=== PATIENT | female | born 1930 | race Caucasian/White ===

== ENCOUNTER → 2016-10-27 | Outpatient (CLI) | payer MEDICARE, MEDICAID ==
[~2016-10-27] MED LIST: DENOSUMAB 60 MG/ML 1 ML SYRINGE SQ ONE
[2016-10-27 11:15] VITALS: BP 126/76; PULSE 78; RESP 16; TEMP 97.9
== END ==
LOC: PROCWHC3 10:38
PROVIDERS: ATTEND Family Medicine
DX: M81.0 Age-related osteoporosis without current pathological fracture (principal)
CPT/HCPCS: 96372; J0897

== ENCOUNTER → 2017-04-19 | Outpatient (CLI) | payer MEDICARE, MEDICAID ==
--- NOTE | 2017-04-20 14:51 | MM ---
Reason for exam: screening (asymptomatic). Last mammogram was performed 1 year ago. History: Patient is postmenopausal, has history of breast cancer at age 70, has history of high-risk lesion on a previous biopsy at age 70, and had first child at age 31. No known family history of cancer. High risk mastectomy of the right breast, April 25, 2001. Malignant excisional biopsy of the right breast, April 11, 2001. Lumpectomy of the left breast, 1959. Cyst aspiration of the right breast. Took tamoxifen for 5 years beginning at age 70. Physical Findings: A clinical breast exam by your physician is recommended on an annual basis and results should be correlated with mammographic findings. MG 3D Scr Renee Unilateral W/Cad CC, MLO, and XCCL view(s) were taken of the left breast. Prior study comparison: April 18, 2016, left breast MG 3d diag mammo w/cad LT. March 30, 2015, left breast MG 3d diag mammo w/cad LT. The breast tissue is heterogeneously dense. This may lower the sensitivity of mammography. Finding #1: Stable architectural distortion in the anterior, subareolar position of the left breast consistent with known lumpectomy. Finding #2: There are typically benign round calcifications in the left breast. There is no discrete abnormality. ASSESSMENT: Benign, BI-RAD 2 RECOMMENDATION: Follow-up diagnostic mammogram of the left breast in 1 year.
== END | disposition home or self-care (01) ==
LOC: RADMAMWWP 12:56
PROVIDERS: ATTEND Family Medicine
DX: Z12.31 Encounter for screening mammogram for malignant neoplasm of breast (principal)
CPT/HCPCS: 77063; G0202

== ENCOUNTER → 2017-05-01 | Outpatient (CLI) | payer MEDICARE, MEDICAID ==
[2017-05-01 14:07] VITALS: BP 116/66; PULSE 79; RESP 16; TEMP 97.8
== END | disposition home or self-care (01) ==
LOC: PROCWHC3 13:51
PROVIDERS: ATTEND Family Medicine
DX: M81.0 Age-related osteoporosis without current pathological fracture (principal)
CPT/HCPCS: 96372; J0897

== ENCOUNTER 2017-06-29 10:53 | Emergency (ER) | payer MEDICARE, MEDICAID ==
[2017-06-29] MEDS ORDERED: SODIUM CHLORIDE 0.9% 1,000 ML IV STA (10:59)
[2017-06-29] MEDS ORDERED: DILTIAZEM 5 MG/ML 5 ML VIAL IVP STA (10:59)
--- NOTE | 2017-06-29 11:09 | ED ---
General Adult HPI - General Chief complaint: Dizziness Stated complaint: Dizzy/ A fib Time Seen by Provider: 06/29/17 10:59 Source: patient, RN notes reviewed, old records reviewed Mode of arrival: wheelchair Limitations: no limitations - History of Present Illness Initial comments: This is an 86-year-old female to the ER for evaluation. She presents today for evaluation regarding feeling dizzy, dizzy weak lightheaded. Patient states she has history of atrial fibrillation, she has had some palpitations. No fevers. No chest - Related Data Home Medications Medication Instructions Recorded Confirmed Verapamil HCl 120 mg PO DAILY 08/25/15 06/29/17 Calcium Carbonate [Tums] 500 mg PO BID 06/29/17 06/29/17 Sulfamethox-Tmp 800-160Mg [Bactrim 1 tab PO BID 06/29/17 06/29/17 DS 800-160 mg] Previous Rx's Medication Instructions Recorded Warfarin Sodium [Coumadin] 5 mg PO DAILY #10 tab 08/29/15 Allergies Allergy/AdvReac Type Severity Reaction Status Date / Time morphine AdvReac Nausea & Verified 06/29/17 11:25 Vomiting Review of Systems ROS Statement: Those systems with pertinent positive or pertinent negative responses have been documented in the HPI. ROS Other: All systems not noted in ROS Statement are negative. Past Medical History Past Medical History: Atrial Fibrillation, Cancer, Deep Vein Thrombosis (DVT), Eye Disorder, Osteoarthritis (OA) Additional Past Medical History / Comment(s): BREAST CANCER.CATARACTS, SINUS PROBLEMS,DVT POST SX. 1998, INCONT OF URINE, OSTEOPOROSIS, SHINGLES RT HIP/BACK IN 2014, CONSTIPATION D/T PAIN MEDS, HAS HAD A FAST HEART RATE IN PAST,VERY TINY BM TODAYHAD A LARGE ONE DAY BEFORE.PER FAMILY PT TO ONLY HAVE 50% WEIGHT BEAR ON RT AND NOT TO LAY ON HER SIDES-JUST HAD HIP SX 07-28-15. History of Any Multi-Drug Resistant Organisms: None Reported Past Surgical History: Breast Surgery, Cholecystectomy, Hysterectomy, Joint Replacement, Orthopedic Surgery, Tonsillectomy Additional Past Surgical History / Comment(s): BILATERAL KNEE REPLACEMENT. CARPAL TUNNEL. RIGHT MASTECTOMY (NO CHEMO OR RADIATION). LT BREAST BX NEG ORIF RIGHT ELBOW.07-28-15 RT HIP REPLACEMENT, LT BREAST BX, CYSTOCELE/RECTOCELE Past Anesthesia/Blood Transfusion Reactions: No Reported Reaction Past Psychological History: No Psychological Hx Reported Smoking Status: Never smoker Past Alcohol Use History: None Reported Past Drug Use History: None Reported - Past Family History Daughter(s) Family Medical History: Asthma Additional Family Medical History / Comment(s): PT WAS ADOPTED DOES'NT KNOW ANY MOM AND DAD HX. General Exam Limitations: no limitations General appearance: alert, in no apparent distress Head exam: Present: atraumatic, normocephalic, normal inspection Eye exam: Present: normal appearance, PERRL, EOMI. Absent: scleral icterus, conjunctival injection, periorbital swelling ENT exam: Present: normal exam, mucous membranes moist Neck exam: Present: normal inspection. Absent: tenderness, meningismus, lymphadenopathy Respiratory exam: Present: normal lung sounds bilaterally. Absent: respiratory distress, wheezes, rales, rhonchi, stridor Cardiovascular Exam: Present: regular rate, normal rhythm, normal heart sounds. Absent: systolic murmur, diastolic murmur, rubs, gallop, clicks GI/Abdominal exam: Present: soft, normal bowel sounds. Absent: distended, tenderness, guarding, rebound, rigid Extremities exam: Present: normal inspection, full ROM, normal capillary refill. Absent: tenderness, pedal edema, joint swelling, calf tenderness Back exam: Present: normal inspection Neurological exam: Present: alert, oriented X3, CN II-XII intact Psychiatric exam: Present: normal affect, normal mood Skin exam: Present: warm, dry, intact, normal color. Absent: rash Course Vital Signs 06/29/17 06/29/17 10:56 11:15 Temperature 99.1 F 99.1 F Pulse Rate 105 H 78 Respiratory 20 15 Rate Blood Pressure 111/70 118/61 O2 Sat by Pulse 96 96 Oximetry - Reevaluation(s) Reevaluation #1: 06/29/17 13:27 Patient currently states she has no complaints is feeling better, denies chest pain shortness of breath abdominal pain or headache EKG Findings - EKG Comments: EKG Findings:: EKG shows normal sinus rhythm rate of 86, [place] 170, QRS 1:30, QTc 464 Medical Decision Making - Medical Decision Making 86 female DEL status post weakness and near syncopal event, patient is well- hydrated now here in the emergency room, labwork is all normal EKG is negative. Patient denies headache chest pain shortness of breath or abdominal pain. Patient is able to ambulate here in the emergency room without difficulty and can be discharged home - Lab Data Result diagrams: 06/29/17 11:10 06/29/17 11:10 Lab Results 06/29/17 06/29/17 06/29/17 Range/Units 11:10 11:10 11:10 WBC 7.3 (3.8-10.6) k/uL RBC 4.48 (3.80-5.40) m/uL Hgb 13.8 (11.4-16.0) gm/dL Hct 41.8 (34.0-46.0) % MCV 93.2 (80.0-100.0) fL MCH 30.9 (25.0-35.0) pg MCHC 33.1 (31.0-37.0) g/dL RDW 12.9 (11.5-15.5) % Plt Count 140 L (150-450) k/uL Neutrophils % 83 % Lymphocytes % 8 % Monocytes % 3 % Eosinophils % 1 % Basophils % 1 % Neutrophils # 6.1 (1.3-7.7) k/uL Lymphocytes # 0.6 L (1.0-4.8) k/uL Monocytes # 0.2 (0-1.0) k/uL Eosinophils # 0.1 (0-0.7) k/uL Basophils # 0.1 (0-0.2) k/uL PT (9.0-12.0) sec INR (<1.2) APTT (22.0-30.0) sec Sodium 139 (137-145) mmol/L Potassium 4.0 (3.5-5.1) mmol/L Chloride 106 (98-107) mmol/L Carbon Dioxide 21 L (22-30) mmol/L Anion Gap 12 mmol/L BUN 20 H (7-17) mg/dL Creatinine 1.20 H (0.52-1.04) mg/dL Est GFR (MDRD) Af Amer 52 (>60 ml/min/1.73 sqM) Est GFR (MDRD) Non-Af 42 (>60 ml/min/1.73 sqM) Glucose 211 H (74-99) mg/dL Calcium 8.5 (8.4-10.2) mg/dL Phosphorus 2.8 (2.5-4.5) mg/dL Magnesium 2.0 (1.6-2.3) mg/dL Total Bilirubin 0.7 (0.2-1.3) mg/dL AST 25 (14-36) U/L ALT 30 (9-52) U/L Alkaline Phosphatase 60 (38-126) U/L Total Creatine Kinase 53 (30-135) U/L CK-MB (CK-2) 0.7 (0.0-2.4) ng/mL CK-MB (CK-2) Rel Index 1.3 Troponin I <0.012 (0.000-0.034) ng/mL Total Protein 6.3 (6.3-8.2) g/dL Albumin 3.5 (3.5-5.0) g/dL Urine Color Urine Appearance (Clear) Urine pH (5.0-8.0) Ur Specific [place] (1.001-1.035) Urine Protein (Negative) Urine Glucose (UA) (Negative) Urine Ketones (Negative) Urine Blood (Negative) Urine Nitrite (Negative) Urine Bilirubin (Negative) Urine Urobilinogen (<2.0) mg/dL Ur Leukocyte Esterase (Negative) 06/29/17 06/29/17 Range/Units 11:10 12:40 WBC (3.8-10.6) k/uL RBC (3.80-5.40) m/uL Hgb (11.4-16.0) gm/dL Hct (34.0-46.0) % MCV (80.0-100.0) fL MCH (25.0-35.0) pg MCHC (31.0-37.0) g/dL RDW (11.5-15.5) % Plt Count (150-450) k/uL Neutrophils % % Lymphocytes % % Monocytes % % Eosinophils % % Basophils % % Neutrophils # (1.3-7.7) k/uL Lymphocytes # (1.0-4.8) k/uL Monocytes # (0-1.0) k/uL Eosinophils # (0-0.7) k/uL Basophils # (0-0.2) k/uL PT 46.2 H (9.0-12.0) sec INR 5.1 H* (<1.2) APTT 45.9 H (22.0-30.0) sec Sodium (137-145) mmol/L Potassium (3.5-5.1) mmol/L Chloride (98-107) mmol/L Carbon Dioxide (22-30) mmol/L Anion Gap mmol/L BUN (7-17) mg/dL Creatinine (0.52-1.04) mg/dL Est GFR (MDRD) Af Amer (>60 ml/min/1.73 sqM) Est GFR (MDRD) Non-Af (>60 ml/min/1.73 sqM) Glucose (74-99) mg/dL Calcium (8.4-10.2) mg/dL Phosphorus (2.5-4.5) mg/dL Magnesium (1.6-2.3) mg/dL Total Bilirubin (0.2-1.3) mg/dL AST (14-36) U/L ALT (9-52) U/L Alkaline Phosphatase (38-126) U/L Total Creatine Kinase (30-135) U/L CK-MB (CK-2) (0.0-2.4) ng/mL CK-MB (CK-2) Rel Index Troponin I (0.000-0.034) ng/mL Total Protein (6.3-8.2) g/dL Albumin (3.5-5.0) g/dL Urine Color Yellow Urine Appearance Clear (Clear) Urine pH 6.0 (5.0-8.0) Ur Specific [place] 1.009 (1.001-1.035) Urine Protein Negative (Negative) Urine Glucose (UA) Negative (Negative) Urine Ketones Negative (Negative) Urine Blood Negative (Negative) Urine Nitrite Negative (Negative) Urine Bilirubin Negative (Negative) Urine Urobilinogen <2.0 (<2.0) mg/dL Ur Leukocyte Esterase Negative (Negative) Disposition Clinical Impression: Dehydration, Dizziness, Near syncope Disposition: HOME SELF-CARE Condition: Good Instructions: Dizziness (ED) Referrals: Baljit Hart MD [Primary Care Provider] - 1-2 days
[2017-06-29 11:36] LABS: Basophils # (A) 0.1 k/uL (0-0.2); Basophils % (A) 1 %; Eosinophils # (A) 0.1 k/uL (0-0.7); Eosinophils % (A) 1 %; HCT 41.8 % (34.0-46.0); HGB 13.8 gm/dL (11.4-16.0); Lymphocytes # (A) 0.6 k/uL (1.0-4.8); Lymphocytes % (A) 8 %; MCH 30.9 pg (25.0-35.0); MCHC 33.1 g/dL (31.0-37.0); MCV 93.2 fL (80.0-100.0); Mean Platelet Volume 7.8; Monocytes # (A) 0.2 k/uL (0-1.0); Monocytes % (A) 3 %; Neutrophils # (A) 6.1 k/uL (1.3-7.7); Neutrophils % (A) 83 %; Platelet Count 140 k/uL (150-450); RBC 4.48 m/uL (3.80-5.40); RDW 12.9 % (11.5-15.5); WBC 7.3 k/uL (3.8-10.6)
[2017-06-29 11:44] LABS: Partial Thromboplastin Time 45.9 sec (22.0-30.0)
[2017-06-29 11:46] LABS: Albumin 3.5 g/dL (3.5-5.0); Total Protein 6.3 g/dL (6.3-8.2)
[2017-06-29 11:47] LABS: Calcium 8.5 mg/dL (8.4-10.2); Phosphorus 2.8 mg/dL (2.5-4.5); Total Bilirubin 0.7 mg/dL (0.2-1.3)
[2017-06-29 11:52] LABS: Prothrombin Time 46.2 sec (9.0-12.0)
[2017-06-29 11:55] LABS: INR 5.1 (<1.2)
[2017-06-29 12:00] LABS: Creatine Kinase 53 U/L (30-135)
[2017-06-29 12:11] LABS: Creatine Kinase MB 0.7 ng/mL (0.0-2.4); Troponin I <0.012 ng/mL (0.000-0.034)
[2017-06-29 13:01] LABS: Appearance,Urine Clear (Clear); Bilirubin,Urine Negative (Negative); Blood,Urine Negative (Negative); Color,Urine Yellow; Glucose,Urine (UA) Negative (Negative); Ketones,Urine Negative (Negative); Leukocyte Esterase,Urine Negative (Negative); Nitrite,Urine Negative (Negative); Protein,Urine Negative (Negative); Specific Gravity,Urine 1.009 (1.001-1.035); Urobilinogen,Urine <2.0 mg/dL (<2.0)
[2017-06-29 14:35] VITALS: BP 116/64; PULSE 65; RESP 18; TEMP 97.8
== END 2017-06-29 14:35 | disposition home or self-care (01) ==
LOC: EC 10:53
DX: E86.0 Dehydration (principal); R42 Dizziness and giddiness; R55 Syncope and collapse; I48.91 Unspecified atrial fibrillation; Z85.3 Personal history of malignant neoplasm of breast; Z79.899 Other long term (current) drug therapy; Z88.5 Allergy status to narcotic agent
CPT/HCPCS: 36415; 80053; 81003; 82550; 82553; 83735; 84100; 84484; 85025; 85610; 85730; 87086; 93005; 96360; 96361; 99284

== ENCOUNTER 2017-08-18 11:51 | Emergency (ER) | payer MEDICARE, MEDICAID ==
[2017-08-18 12:25] VITALS: TEMP 98.3
--- NOTE | 2017-08-18 14:12 | ED ---
Lower Extremity Injury HPI - General Chief Complaint: Extremity Injury, Lower Stated Complaint: Foot is purple Time Seen by Provider: 08/18/17 13:15 Source: patient, RN notes reviewed, old records reviewed Mode of arrival: wheelchair Limitations: no limitations - History of Present Illness Initial Comments: This patient is a 87 year old female with CC of "purple foot" when her foot was down for approximately one hour, and then when she elevated her foot the normal color returned. She is currently wearing a holter monitor. Patient has had a small ulceration on her fourth toe that she also wants checked. She reports that her feet are chronically cold, and reports that she has significant varicose veins. She denies any foot pain, denies any fever, chills, chest pain, shortness of breath, leg pain, nausea, vomiting, abdominal pain. - Related Data Home Medications Medication Instructions Recorded Confirmed Verapamil HCl 120 mg PO DAILY 08/25/15 07/17/17 Calcium Carbonate [Tums] 500 mg PO BID 06/29/17 07/17/17 Previous Rx's Medication Instructions Recorded Warfarin Sodium [Coumadin] 5 mg PO DAILY #10 tab 08/29/15 Acetaminophen Tab [Tylenol] 650 mg PO Q6HR PRN tab 07/19/17 HYDROcodone/APAP 5-325MG [[place] 1 each PO Q4HR PRN tab 07/19/17 5-325] Pantoprazole [Protonix] 40 mg PO [id number] tablet. 07/19/17 Collagenase [Santyl] 1 applic TOPICAL DAILY #1 tube 08/18/17 Allergies Allergy/AdvReac Type Severity Reaction Status Date / Time morphine AdvReac Nausea & Verified 07/17/17 19:39 Vomiting Review of Systems ROS Statement: Those systems with pertinent positive or pertinent negative responses have been documented in the HPI. ROS Other: All systems not noted in ROS Statement are negative. Past Medical History Past Medical History: Atrial Fibrillation, Cancer, Deep Vein Thrombosis (DVT), Eye Disorder, Osteoarthritis (OA) Additional Past Medical History / Comment(s): BREAST CANCER.CATARACTS, SINUS PROBLEMS,DVT POST SX. 1998, INCONT OF URINE, OSTEOPOROSIS, SHINGLES RT HIP/BACK IN 2014, CONSTIPATION D/T PAIN MEDS, HAS HAD A FAST HEART RATE IN PAST,VERY TINY BM TODAYHAD A LARGE ONE DAY BEFORE.PER FAMILY PT TO ONLY HAVE 50% WEIGHT BEAR ON RT AND NOT TO LAY ON HER SIDES History of Any Multi-Drug Resistant Organisms: None Reported Past Surgical History: Breast Surgery, Cholecystectomy, Hysterectomy, Joint Replacement, Orthopedic Surgery, Tonsillectomy Additional Past Surgical History / Comment(s): BILATERAL KNEE REPLACEMENT. CARPAL TUNNEL. RIGHT MASTECTOMY (NO CHEMO OR RADIATION). LT BREAST BX NEG ORIF RIGHT ELBOW.07-28-15 RT HIP REPLACEMENT, LT BREAST BX, CYSTOCELE/RECTOCELE Past Anesthesia/Blood Transfusion Reactions: No Reported Reaction Past Psychological History: No Psychological Hx Reported Smoking Status: Never smoker Past Alcohol Use History: None Reported Past Drug Use History: None Reported - Past Family History Daughter(s) Family Medical History: Asthma Additional Family Medical History / Comment(s): PT WAS ADOPTED DOES'NT KNOW ANY MOM AND DAD HX. General Exam - General Exam Comments Initial Comments: This is a pleasant 87 year old female, no acute distress. Limitations: no limitations General appearance: alert, in no apparent distress Head exam: Present: atraumatic, normocephalic, normal inspection Eye exam: Present: normal appearance, PERRL, EOMI. Absent: scleral icterus, conjunctival injection, periorbital swelling ENT exam: Present: normal exam, mucous membranes moist Neck exam: Present: normal inspection. Absent: tenderness, meningismus, lymphadenopathy Respiratory exam: Present: normal lung sounds bilaterally. Absent: respiratory distress, wheezes, rales, rhonchi, stridor Cardiovascular Exam: Present: regular rate, normal rhythm, normal heart sounds, other (Patient has holter monitor on. ). Absent: systolic murmur, diastolic murmur, rubs, gallop, clicks Extremities exam: Present: normal inspection, full ROM, normal capillary refill , other (Patient has palpable bilateral dorsalis pedis and posterior tibial pulses. She has significatn varicosities over bilater lower extremities. She has no discoloration when foot is on the bed, if foot is hanging dependenctly there is noted venous engorgeent and starting of faint blue discoloration. She has normal pulses. Small blister between 3rd and 4th toe. No significant ulceration. Normal cap refill. ). Absent: tenderness, pedal edema, joint swelling, calf tenderness Back exam: Present: normal inspection Neurological exam: Present: alert, oriented X3, CN II-XII intact Psychiatric exam: Present: normal affect, normal mood Course Vital Signs 08/18/17 08/18/17 12:19 14:29 Temperature 98.3 F Pulse Rate 71 62 Respiratory 17 16 Rate Blood Pressure 122/68 119/63 O2 Sat by Pulse 96 96 Oximetry Medical Decision Making - Medical Decision Making This is a pleasant 87 year old femalewith CC of blue discolration of her left foot when it was hanging down and dependent. She has no pain. She also has small .2cm blister between 3 and 4th toe. No necrotic tissue or significant wound noted at this time. Patient has normal pulses. Patient has dependent discloration related to varicosities. Discussed patient needs to keep the foot elevated, and wear compression stockings. Discussed using neosporin or santyl cream on small blister of toe and to watch it. Discussed follow up with PCP and podiatry. Return parameters discussed. Disposition Clinical Impression: Varicose veins of both lower extremities, Blister of toe of left foot Disposition: HOME SELF-CARE Condition: Good Instructions: Varicose Veins (ED) Additional Instructions: Patient advised to keep the foot up and elevated. Patient should follow-up with primary care provider. Apply the cream over the toe. Also recommended following up with it administrative assistant as well. PT/INR checked today. Return to emergency department if any alarming signs or symptoms occur. Prescriptions: Collagenase [Santyl] 1 applic TOPICAL DAILY #1 tube Referrals: Baljit Hart MD [Primary Care Provider] - 1-2 days José Pagan DPM [STAFF PHYSICIAN] - 1-2 days Maury Amaya DPM [STAFF PHYSICIAN] - 1-2 days Time of Disposition: 14:11
[2017-08-18 14:30] VITALS: BP 119/63; PULSE 62; RESP 16
== END 2017-08-18 14:30 | disposition home or self-care (01) ==
LOC: EC 11:51
DX: S90.425A Blister (nonthermal), left lesser toe(s), initial encounter (principal); I83.93 Asymptomatic varicose veins of bilateral lower extremities; I48.91 Unspecified atrial fibrillation; Z85.3 Personal history of malignant neoplasm of breast; Z79.899 Other long term (current) drug therapy; Z88.5 Allergy status to narcotic agent
CPT/HCPCS: 99283

== ENCOUNTER 2017-11-06 18:56 | Emergency (ER) | payer MEDICARE, MEDICAID ==
[2017-11-06 19:01] VITALS: RESP 18
[2017-11-06 20:05] LABS: Albumin 3.8 g/dL (3.5-5.0); Calcium 9.3 mg/dL (8.4-10.2); INR 2.1 (<1.2); Partial Thromboplastin Time 28.5 sec (22.0-30.0); Potassium 4.1 mmol/L (3.5-5.1); Total Bilirubin 0.3 mg/dL (0.2-1.3); Total Protein 6.3 g/dL (6.3-8.2)
[2017-11-06 20:13] LABS: Basophils % (A) 1 %; Eosinophils # (A) 0.2 k/uL (0-0.7); Eosinophils % (A) 4 %; HGB 13.5 gm/dL (11.4-16.0); Lymphocytes % (A) 21 %; MCH 31.4 pg (25.0-35.0); MCHC 33.7 g/dL (31.0-37.0); MCV 93.1 fL (80.0-100.0); Mean Platelet Volume 7.6; Monocytes # (A) 0.3 k/uL (0-1.0); Monocytes % (A) 7 %; Neutrophils # (A) 3.3 k/uL (1.3-7.7); Neutrophils % (A) 66 %; Platelet Count 124 k/uL (150-450)
[2017-11-06] MEDS ORDERED: SODIUM CHLORIDE 0.9% 1,000 ML IV ONE (20:23)
--- NOTE | 2017-11-06 20:24 | ED ---
General Adult HPI - General Chief complaint: Vaginal Bleeding Stated complaint: On Coumadin/Vagnial bleeding Time Seen by Provider: 11/06/17 19:20 Source: patient, family Mode of arrival: wheelchair Limitations: no limitations - History of Present Illness Initial comments: Rossana Hernandez is an 87-year-old female who presents to the emergency department today for evaluation of vaginal bleeding. Patient reports that she's been in her usual state of health, she reports that when she urinated this morning she noticed some bright red blood upon wiping. She states she is to pad in her underpants because she does have occasional urinary incontinence. She states that throughout the day she has noticed some speckling of bright red blood on the pad. She advised her daughter this, daughter became concerned because her Coumadin dose was recently increased and she wanted to make sure that the patient's Coumadin level was not too high and that she wasn't having any GI bleeding. She has no history of GI bleeding. She reports she is otherwise feeling quite well. She denies any dysuria but does report urinary frequency. She however she states this is typical for her doesn't feel that her frequency has increased recently. She has been treated for UTIs in the past but states that with previous UTIs she's had dysuria. She denies any abdominal pain, cramping, diarrhea or constipation. She has no history of hemorrhoids or GI bleeding that she is aware of. Any other bleeding , bleeding from her gums or nosebleeds. She states she has easy bruising but this is unchanged recently and has been chronic since being on the Coumadin. [place] any lightheadedness, chest pain, shortness breath or feeling that she's can pass out. - Related Data Home Medications Medication Instructions Recorded Confirmed Verapamil HCl 120 mg PO DAILY 08/25/15 07/17/17 Calcium Carbonate [Tums] 500 mg PO BID 06/29/17 07/17/17 Previous Rx's Medication Instructions Recorded Warfarin Sodium [Coumadin] 5 mg PO DAILY #10 tab 08/29/15 Acetaminophen Tab [Tylenol] 650 mg PO Q6HR PRN tab 07/19/17 HYDROcodone/APAP 5-325MG [[place] 1 each PO Q4HR PRN tab 07/19/17 5-325] Pantoprazole [Protonix] 40 mg PO AC-BRKFST tablet. 07/19/17 Collagenase [Santyl] 1 applic TOPICAL DAILY #1 tube 08/18/17 Nitrofurantoin Monohyd/M-Cryst 100 mg PO Q12HR 3 Days #6 cap 11/06/17 [Macrobid] Allergies Allergy/AdvReac Type Severity Reaction Status Date / Time morphine AdvReac Nausea & Verified 11/06/17 19:01 Vomiting Review of Systems ROS Statement: Those systems with pertinent positive or pertinent negative responses have been documented in the HPI. ROS Other: All systems not noted in ROS Statement are negative. Constitutional: Reports: chills (Patient states she has always been cold since starting Coumadin) Respiratory: Denies: cough Cardiovascular: Denies: chest pain Gastrointestinal: Denies: abdominal pain, nausea, vomiting, diarrhea, constipation, hematemesis, melena, hematochezia Genitourinary: Reports: hematuria. Denies: discharge Musculoskeletal: Denies: back pain Skin: Denies: rash, lesions Neurological: Denies: headache, weakness Psychiatric: Denies: anxiety, depression Hematological/Lymphatic: Reports: easy bleeding, easy bruising Past Medical History Past Medical History: Atrial Fibrillation, Cancer, Deep Vein Thrombosis (DVT), Eye Disorder, Osteoarthritis (OA) Additional Past Medical History / Comment(s): BREAST CANCER.CATARACTS, SINUS PROBLEMS,DVT POST SX. 1998, INCONT OF URINE, OSTEOPOROSIS, SHINGLES RT HIP/BACK IN 2014, CONSTIPATION D/T PAIN MEDS, HAS HAD A FAST HEART RATE IN PAST,VERY TINY BM TODAYHAD A LARGE ONE DAY BEFORE.PER FAMILY PT TO ONLY HAVE 50% WEIGHT BEAR ON RT AND NOT TO LAY ON HER SIDES History of Any Multi-Drug Resistant Organisms: None Reported Past Surgical History: Breast Surgery, Cholecystectomy, Hysterectomy, Joint Replacement, Orthopedic Surgery, Tonsillectomy Additional Past Surgical History / Comment(s): BILATERAL KNEE REPLACEMENT. CARPAL TUNNEL. RIGHT MASTECTOMY (NO CHEMO OR RADIATION). LT BREAST BX NEG ORIF RIGHT ELBOW.07-28-15 RT HIP REPLACEMENT, LT BREAST BX, CYSTOCELE/RECTOCELE Past Anesthesia/Blood Transfusion Reactions: No Reported Reaction Past Psychological History: No Psychological Hx Reported Smoking Status: Never smoker Past Alcohol Use History: None Reported Past Drug Use History: None Reported - Past Family History Daughter(s) Family Medical History: Asthma Additional Family Medical History / Comment(s): PT WAS ADOPTED DOES'NT KNOW ANY MOM AND DAD HX. General Exam Limitations: no limitations General appearance: alert, in no apparent distress Head exam: Present: atraumatic, normocephalic Eye exam: Present: normal appearance, PERRL ENT exam: Present: normal exam Respiratory exam: Absent: respiratory distress Cardiovascular Exam: Present: regular rate, irregular rhythm GI/Abdominal exam: Present: soft, normal bowel sounds. Absent: distended, tenderness, guarding, rebound, rigid Rectal exam: Present: normal inspection. Absent: hemorrhoids External exam: Present: normal external exam. Absent: lesions, lacerations Extremities exam: Present: normal inspection Back exam: Present: normal inspection Neurological exam: Present: alert, oriented X3 Psychiatric exam: Present: normal affect, normal mood Skin exam: Present: warm, dry. Absent: petechiae, pallor, mottled Course Vital Signs 11/06/17 11/06/17 11/06/17 18:59 19:25 22:03 Temperature 98.0 F Pulse Rate 86 74 72 Respiratory 18 18 18 Rate Blood Pressure 139/70 117/70 150/72 O2 Sat by Pulse 99 96 97 Oximetry 11/06/17 23:16 Temperature 98.4 F Pulse Rate 90 Respiratory 18 Rate Blood Pressure 152/78 O2 Sat by Pulse 98 Oximetry Medical Decision Making - Medical Decision Making The patient was seen and evaluated, history was obtained from the patient and her daughter bedside Vaginal exam reveals no obvious signs of trauma, no lacerations, no bleeding, the vaginal introitus has no bleeding External rectal exam is unremarkable, there are no hemorrhoids, no bleeding, no dried blood around the rectum Patient was noted to have a couple drops of bright red blood on the pad in her underpants, as well as some urine. I have a high suspicion for hematuria. Labs and urinalysis were ordered Labs reveal an INR of 2.1, this is at goal for the patient We were unable to obtain a straight cath urine sample, patient was able to provide a urine sample and a bedside commode. Urinalysis revealed urinary tract infection with hematuria. At this point I suspect that the bleeding is secondary to urinary tract infection. Results were discussed with the patient and her daughter bedside. Urine culture and Rocephin were ordered. Patient will be discharged home on . Patient and daughter were advised that the patient needs to be seen by her primary care physician on Monday for a repeat urinalysis to ensure resolution of the hematuria. In addition she was advised to return to the emergency department for any worsening vaginal bleeding , dysuria, fevers, inability to hold down her oral antibiotics or any new or concerning symptoms. All questions pertaining care were answered best my ability patient was discharged home in stable condition. - Lab Data Result diagrams: 11/06/17 20:03 11/06/17 19:41 Lab Results 11/06/17 11/06/17 11/06/17 Range/Units 19:41 19:41 20:03 WBC 5.0 (3.8-10.6) k/uL RBC 4.30 (3.80-5.40) m/uL Hgb 13.5 (11.4-16.0) gm/dL Hct 40.0 (34.0-46.0) % MCV 93.1 (80.0-100.0) fL MCH 31.4 (25.0-35.0) pg MCHC 33.7 (31.0-37.0) g/dL RDW 13.0 (11.5-15.5) % Plt Count 124 L (150-450) k/uL Neutrophils % 66 % Lymphocytes % 21 % Monocytes % 7 % Eosinophils % 4 % Basophils % 1 % Neutrophils # 3.3 (1.3-7.7) k/uL Lymphocytes # 1.0 (1.0-4.8) k/uL Monocytes # 0.3 (0-1.0) k/uL Eosinophils # 0.2 (0-0.7) k/uL Basophils # 0.0 (0-0.2) k/uL PT 19.0 H (9.0-12.0) sec INR 2.1 H (<1.2) APTT 28.5 (22.0-30.0) sec Sodium 148 H (137-145) mmol/L Potassium 4.1 (3.5-5.1) mmol/L Chloride 107 (98-107) mmol/L Carbon Dioxide 28 (22-30) mmol/L Anion Gap 13 mmol/L BUN 26 H (7-17) mg/dL Creatinine 1.10 H (0.52-1.04) mg/dL Est GFR (CKD-EPI)AfAm 52 (>60 ml/min/1.73 sqM) Est GFR (CKD-EPI)NonAf 45 (>60 ml/min/1.73 sqM) Glucose 81 (74-99) mg/dL Calcium 9.3 (8.4-10.2) mg/dL Total Bilirubin 0.3 (0.2-1.3) mg/dL AST 19 (14-36) U/L ALT 25 (9-52) U/L Alkaline Phosphatase 46 (38-126) U/L Total Protein 6.3 (6.3-8.2) g/dL Albumin 3.8 (3.5-5.0) g/dL Urine Color Urine Appearance (Clear) Urine pH (5.0-8.0) Ur Specific [place] (1.001-1.035) Urine Protein (Negative) Urine Glucose (UA) (Negative) Urine Ketones (Negative) Urine Blood (Negative) Urine Nitrite (Negative) Urine Bilirubin (Negative) Urine Urobilinogen (<2.0) mg/dL Ur Leukocyte Esterase (Negative) Urine RBC (0-5) /hpf Urine WBC (0-5) /hpf Ur Squamous Epith Cells (0-4) /hpf Amorphous Sediment (None) /hpf Urine Bacteria (None) /hpf Hyaline Casts (0-2) /lpf Urine Mucus (None) /hpf 11/06/17 Range/Units 21:50 WBC (3.8-10.6) k/uL RBC (3.80-5.40) m/uL Hgb (11.4-16.0) gm/dL Hct (34.0-46.0) % MCV (80.0-100.0) fL MCH (25.0-35.0) pg MCHC (31.0-37.0) g/dL RDW (11.5-15.5) % Plt Count (150-450) k/uL Neutrophils % % Lymphocytes % % Monocytes % % Eosinophils % % Basophils % % Neutrophils # (1.3-7.7) k/uL Lymphocytes # (1.0-4.8) k/uL Monocytes # (0-1.0) k/uL Eosinophils # (0-0.7) k/uL Basophils # (0-0.2) k/uL PT (9.0-12.0) sec INR (<1.2) APTT (22.0-30.0) sec Sodium (137-145) mmol/L Potassium (3.5-5.1) mmol/L Chloride (98-107) mmol/L Carbon Dioxide (22-30) mmol/L Anion Gap mmol/L BUN (7-17) mg/dL Creatinine (0.52-1.04) mg/dL Est GFR (CKD-EPI)AfAm (>60 ml/min/1.73 sqM) Est GFR (CKD-EPI)NonAf (>60 ml/min/1.73 sqM) Glucose (74-99) mg/dL Calcium (8.4-10.2) mg/dL Total Bilirubin (0.2-1.3) mg/dL AST (14-36) U/L ALT (9-52) U/L Alkaline Phosphatase (38-126) U/L Total Protein (6.3-8.2) g/dL Albumin (3.5-5.0) g/dL Urine Color Yellow Urine Appearance Cloudy H (Clear) Urine pH 7.5 (5.0-8.0) Ur Specific [place] 1.017 (1.001-1.035) Urine Protein Negative (Negative) Urine Glucose (UA) Negative (Negative) Urine Ketones Negative (Negative) Urine Blood Small H (Negative) Urine Nitrite Negative (Negative) Urine Bilirubin Negative (Negative) Urine Urobilinogen 2.0 (<2.0) mg/dL Ur Leukocyte Esterase Large H (Negative) Urine RBC 8 H (0-5) /hpf Urine WBC 43 H (0-5) /hpf Ur Squamous Epith Cells <1 (0-4) /hpf Amorphous Sediment Rare H (None) /hpf Urine Bacteria Many H (None) /hpf Hyaline Casts 4 H (0-2) /lpf Urine Mucus Rare H (None) /hpf Disposition Clinical Impression: UTI (urinary tract infection) Disposition: HOME SELF-CARE Condition: Good Instructions: Urinary Tract Infection in Women (ED) Prescriptions: Nitrofurantoin Monohyd/M-Cryst [Macrobid] 100 mg PO Q12HR 3 Days #6 cap Is patient prescribed a controlled substance at d/c from ED?: No Referrals: Baljit Hart MD [Primary Care Provider] - 1-2 days Time of Disposition: 01:50
[2017-11-06 22:09] LABS: Amorphous Sediment,Urine Rare /hpf; Appearance,Urine Cloudy (Clear); Bacteria,Urine Many /hpf; Bilirubin,Urine Negative (Negative); Blood,Urine Small (Negative); Color,Urine Yellow; Glucose,Urine (UA) Negative (Negative); Hyaline Casts,Urine 4 /lpf (0-2); Ketones,Urine Negative (Negative); Leukocyte Esterase,Urine Large (Negative); Mucus,Urine Rare /hpf; Nitrite,Urine Negative (Negative); PH, Urine 7.5 (5.0-8.0); Protein,Urine Negative (Negative); RBC,Urine 8 /hpf (0-5); Specific Gravity,Urine 1.017 (1.001-1.035); Squamous Epithelial Cell,Urine <1 /hpf (0-4); WBC,Urine 43 /hpf (0-5)
[2017-11-06] MEDS ORDERED: cefTRIAXone IN SWFI 1,000 MG/10 ML SYRINGE IVP STA (23:01)
[2017-11-06 23:16] VITALS: BP 152/78; PULSE 90; TEMP 98.4
== END 2017-11-06 23:39 | disposition home or self-care (01) ==
LOC: EC 18:56
DX: N39.0 Urinary tract infection, site not specified (principal); I48.91 Unspecified atrial fibrillation; Z85.3 Personal history of malignant neoplasm of breast; Z79.899 Other long term (current) drug therapy; Z88.5 Allergy status to narcotic agent; Z96.653 Presence of artificial knee joint, bilateral; Z96.641 Presence of right artificial hip joint; Z90.710 Acquired absence of both cervix and uterus
CPT/HCPCS: 36415; 80053; 85025; 85610; 85730; 81001; 87086; 99284; 96374; 96361; J0696

== ENCOUNTER → 2017-11-13 | Outpatient (CLI) | payer MEDICARE, MEDICAID ==
[2017-11-13 14:12] VITALS: BP 103/61; PULSE 92; RESP 18; TEMP 98
== END | disposition home or self-care (01) ==
LOC: PROCWHC3 13:56
PROVIDERS: ATTEND Family Medicine
DX: M81.0 Age-related osteoporosis without current pathological fracture (principal)
CPT/HCPCS: 96372; J0897

== ENCOUNTER → 2018-05-02 | Outpatient (CLI) | payer MEDICARE, MEDICAID ==
--- NOTE | 2018-05-02 14:46 | MM ---
Reason for exam: additional evaluation requested from prior study. Last mammogram was performed 1 year ago. History: Patient is postmenopausal, has history of breast cancer at age 70, has history of high-risk lesion on a previous biopsy at age 70, and had first child at age 31. No known family history of cancer. High risk mastectomy of the right breast, April 25, 2001. Malignant excisional biopsy of the right breast, April 11, 2001. Lumpectomy of the left breast, 1959. Cyst aspiration of the right breast. Took tamoxifen for 5 years beginning at age 70. Physical Findings: Nurse did not find any significant physical abnormalities on exam. MG 3D Diag Mammo W/Cad LT CC and MLO view(s) were taken of the left breast. Prior study comparison: April 19, 2017, bilateral MG 3d scr kyle unilateral w/cad. April 18, 2016, left breast MG 3d diag mammo w/cad LT. There are scattered fibroglandular densities. No significant new findings when compared with previous films. These results were verbally communicated with the patient and result sheet given to the patient on 05/02/18. ASSESSMENT: Benign, BI-RAD 2 RECOMMENDATION: Follow-up diagnostic mammogram of the left breast in 1 year.
== END | disposition home or self-care (01) ==
LOC: RADMAMWWP 13:40
PROVIDERS: ATTEND Family Medicine
DX: R92.8 Other abnormal and inconclusive findings on diagnostic imaging of breast (principal)
CPT/HCPCS: 77065; G0279; 77061

== ENCOUNTER → 2018-05-17 | Outpatient (CLI) | payer MEDICARE, MEDICAID ==
[2018-05-17 09:40] VITALS: BP 111/70; PULSE 99; RESP 16; TEMP 97.8
== END ==
LOC: PROCWHC3 09:28
PROVIDERS: ATTEND Family Medicine
DX: M81.0 Age-related osteoporosis without current pathological fracture (principal)
CPT/HCPCS: 96372; J0897

== ENCOUNTER 2018-07-07 17:00 | Emergency (ER) | payer MEDICARE, MEDICAID | END 2018-07-07 18:42 | disposition home or self-care (01) | LOC: EC 17:00 | DX: H57.11 Ocular pain, right eye (principal); Z98.49 Cataract extraction status, unspecified eye; Z88.5 Allergy status to narcotic agent | CPT/HCPCS: 99283 ==

== ENCOUNTER 2018-12-30 13:46 | Emergency (ER) | payer MEDICARE, MEDICAID ==
[2018-12-30 14:50] VITALS: BP 121/57; PULSE 75; RESP 18; TEMP 97.9
[2018-12-30] MEDS ORDERED: LIDOCAINE 1% INJ 10MG/ML (20 ML MDV) SQ ONE (15:15)
[2018-12-30] MEDS ORDERED: DIPH,PERTUS(ACELL)TETVAC-LF 0.5 ML VIAL IM ONE (15:15)
--- NOTE | 2018-12-30 16:20 | ED ---
General Adult HPI - General Chief complaint: Wound/Laceration Stated complaint: Leg lac Time Seen by Provider: 12/30/18 14:54 Source: patient Mode of arrival: ambulatory Limitations: no limitations - History of Present Illness Initial comments: Patient is an 88-year-old female presents emergency Department with a laceration on her right lower leg. Patient reports she was walking to the magazine rack when she accidentally lacerated the anterior aspect of the right lower leg. Patient reports mild throbbing pain at the site of injury with no active b leeding. Patient denies erythema, edema or skin discoloration. Patient denies any numbness and tingling. Patient reports full range of motion. Patient is unaware of her tetanus status and is on Coumadin. Patient denies taking medication to alleviate the symptoms - Related Data Home Medications Medication Instructions Recorded Confirmed Verapamil HCl 120 mg PO DAILY 08/25/15 12/03/18 Calcium Carbonate [Tums] 500 mg PO BID 06/29/17 12/03/18 Previous Rx's Medication Instructions Recorded Warfarin Sodium [Coumadin] 5 mg PO DAILY #10 tab 08/29/15 Acetaminophen Tab [Tylenol] 650 mg PO Q6HR PRN tab 07/19/17 HYDROcodone/APAP 5-325MG [[place] 1 each PO Q4HR PRN tab 07/19/17 5-325] Pantoprazole [Protonix] 40 mg PO AC-BRKFST tablet. 07/19/17 Collagenase [Santyl] 1 applic TOPICAL DAILY #1 tube 08/18/17 Nitrofurantoin Monohyd/M-Cryst 100 mg PO Q12HR 3 Days #6 cap 11/06/17 [Macrobid] Allergies Allergy/AdvReac Type Severity Reaction Status Date / Time morphine AdvReac Nausea & Verified 12/30/18 14:50 Vomiting Review of Systems ROS Statement: Those systems with pertinent positive or pertinent negative responses have been documented in the HPI. ROS Other: All systems not noted in ROS Statement are negative. Past Medical History Past Medical History: Atrial Fibrillation, Cancer, Deep Vein Thrombosis (DVT), Eye Disorder, Osteoarthritis (OA) Additional Past Medical History / Comment(s): BREAST CANCER.CATARACTS, SINUS PROBLEMS,DVT POST SX. 1998, INCONT OF URINE, OSTEOPOROSIS, SHINGLES RT HIP/BACK IN 2014, CONSTIPATION D/T PAIN MEDS, HAS HAD A FAST HEART RATE IN PAST,VERY TINY BM TODAYHAD A LARGE ONE DAY BEFORE.PER FAMILY PT TO ONLY HAVE 50% WEIGHT BEAR ON RT AND NOT TO LAY ON HER SIDES History of Any Multi-Drug Resistant Organisms: None Reported Past Surgical History: Breast Surgery, Cholecystectomy, Hysterectomy, Joint Replacement, Orthopedic Surgery, Tonsillectomy Additional Past Surgical History / Comment(s): BILATERAL KNEE REPLACEMENT. CARPAL TUNNEL. RIGHT MASTECTOMY (NO CHEMO OR RADIATION). LT BREAST BX NEG ORIF RIGHT ELBOW.07-28-15 RT HIP REPLACEMENT, LT BREAST BX, CYSTOCELE/RECTOCELE Past Anesthesia/Blood Transfusion Reactions: No Reported Reaction Past Psychological History: No Psychological Hx Reported Smoking Status: Former smoker - Past Family History Daughter(s) Family Medical History: Asthma Additional Family Medical History / Comment(s): PT WAS ADOPTED DOES'NT KNOW ANY MOM AND DAD HX. General Exam Limitations: no limitations General appearance: alert, in no apparent distress Head exam: Present: atraumatic, normocephalic, normal inspection Eye exam: Present: normal appearance, PERRL, EOMI Pupils: Present: normal accommodation ENT exam: Present: normal exam, mucous membranes moist, normal external ear exam Neck exam: Present: normal inspection, full ROM Respiratory exam: Present: normal lung sounds bilaterally Cardiovascular Exam: Present: regular rate, normal rhythm, normal heart sounds Extremities exam: Present: full ROM, tenderness (Mild at the site of the injury), normal capillary refill, other (+2 dorsalis pedis and posterior tibialis bilaterally). Absent: normal inspection (3 cm laceration on the anterior aspect of the right lower leg. No active bleeding. No bony deformi ties. No foreign bodies.) Back exam: Present: normal inspection, full ROM Neurological exam: Present: alert, oriented X3 Psychiatric exam: Present: normal affect, normal mood Skin exam: Present: warm, intact, normal color Course Vital Signs 12/30/18 14:47 Temperature 97.9 F Pulse Rate 75 Respiratory 18 Rate Blood Pressure 121/57 O2 Sat by Pulse 97 Oximetry Procedures - Laceration Laceration #1 Consent Obtained: verbal consent Indication: laceration Site: lower extremity (Anterior aspect of the right lower leg) Size (cm): 3 Description: linear Depth: simple, single layer Sedation/Analgesia: none Anesthetic Used: lidocaine 1% Anesthesia Technique: local infiltration Amount (mls): 5 Pre-repair: irrigated extensively Type of Sutures: nylon Size of Sutures: 4-0 Number of Sutures: 5 Technique: simple, interrupted Patient Tolerated Procedure: well Medical Decision Making - Medical Decision Making Patient is an 88-year-old male presenting to emergency Department with a laceration to right leg. Laceration site was repaired with 5 sutures in patient tolerated the procedure well. Patient was given tetanus prophylaxis. Patient advised to return to emergency department for suture removal in 10 days or sooner if symptoms worsen. Patient advised to follow proper wound care structures. Strict return parameters were thoroughly discussed with patient and her daughter who is understanding and agreeable. Case discussed with physician. Disposition Clinical Impression: Laceration Disposition: HOME SELF-CARE Condition: Stable Instructions (If sedation given, give patient instructions): Care For Your Stitches (DC), Laceration (DC) Additional Instructions: Please return to emergency department for suture removal in 10 days or sooner if symptoms worsen. Please follow proper wound care structures. Is patient prescribed a controlled substance at d/c from ED?: No Referrals: Baljit Hart MD [Primary Care Provider] - 1-2 days Time of Disposition: 16:20
[2018-12-31] MEDS ORDERED: SODIUM CHLORIDE 0.9% IRRIG 1,000 ML BTL IRRIGATION ONE (02:48)
== END 2018-12-30 16:36 | disposition home or self-care (01) ==
LOC: EC 13:46
DX: S81.811A Laceration without foreign body, right lower leg, initial encounter (principal); I48.91 Unspecified atrial fibrillation; M19.90 Unspecified osteoarthritis, unspecified site; Z87.891 Personal history of nicotine dependence; Z88.5 Allergy status to narcotic agent; Z79.899 Other long term (current) drug therapy; Z85.3 Personal history of malignant neoplasm of breast; Z90.11 Acquired absence of right breast and nipple; Z96.653 Presence of artificial knee joint, bilateral; Z96.641 Presence of right artificial hip joint; Z23 Encounter for immunization; W26.8XXA Contact with other sharp object(s), not elsewhere classified, initial encounter; Y93.01 Activity, walking, marching and hiking; Y92.009 Unspecified place in unspecified non-institutional (private) residence as the place of occurrence of the external cause
CPT/HCPCS: 99282; 12002; 90471; 90715; J2001

== ENCOUNTER 2019-03-11 10:43 | Observation (INO) | payer MEDICARE, MEDICAID ==
--- NOTE | 2019-03-11 11:33 | ED ---
General Adult HPI - General Chief complaint: Weakness Stated complaint: chest pain Source: family, RN notes reviewed Mode of arrival: ambulatory Limitations: altered mental status, physical limitation - History of Present Illness Initial comments: This is an 88-year-old female who presents to the emergency department complaining of weakness. Patient states she's been generally weak over the last few weeks the last couple of days and seems of gotten worse per patient woke up this morning in a sweat but had no other complaints and generalized weakness. Patient's family is here and agrees with this. Patient denies any chest pain palpitations difficulty breathing or shortness of breath. Patient denies any abdominal pain. Patient denies any nausea vomiting or diarrhea. Patient denies any recent fever chills or cough per patient denies headache patient denies numbness or focal weakness. Patient denies any swelling to the legs or calf tenderness. - Related Data Home Medications Medication Instructions Recorded Confirmed Verapamil HCl 120 mg PO DAILY 08/25/15 03/11/19 Calcium Carbonate [Tums] 1,000 mg PO BID 06/29/17 03/11/19 Cholecalciferol [Vitamin D3 (25 1,000 unit PO DAILY 03/11/19 03/11/19 Mcg = 1000 Iu)] Donepezil [Aricept] 10 mg PO HS 03/11/19 03/11/19 Pravastatin Sodium [Pravachol] 20 mg PO HS 03/11/19 03/11/19 Warfarin Sodium [Coumadin] 5 mg PO MOTUWETHSA 03/11/19 03/11/19 Warfarin [Coumadin] 7.5 mg PO SUFR 03/11/19 03/11/19 Allergies Allergy/AdvReac Type Severity Reaction Status Date / Time morphine AdvReac Nausea & Verified 03/11/19 11:08 Vomiting Review of Systems ROS Statement: Those systems with pertinent positive or pertinent negative responses have been documented in the HPI. ROS Other: All systems not noted in ROS Statement are negative. Past Medical History Past Medical History: Atrial Fibrillation, Cancer, Deep Vein Thrombosis (DVT), Eye Disorder, Osteoarthritis (OA) Additional Past Medical History / Comment(s): BREAST CANCER.CATARACTS, SINUS PROBLEMS, DVT POST SX. 1998, INCONT OF URINE, OSTEOPOROSIS, SHINGLES RT HIP/BACK IN 2014, CONSTIPATION D/T PAIN MEDS, HAS HAD A FAST HEART RATE IN PAST, PER FAMILY PT TO ONLY HAVE 50% WEIGHT BEAR ON RT AND NOT TO LAY ON HER SIDES History of Any Multi-Drug Resistant Organisms: None Reported Past Surgical History: Breast Surgery, Cholecystectomy, Hysterectomy, Joint Replacement, Orthopedic Surgery, Tonsillectomy Additional Past Surgical History / Comment(s): BILATERAL KNEE REPLACEMENT. CARPAL TUNNEL. RIGHT MASTECTOMY (NO CHEMO OR RADIATION). LT BREAST BX NEG ORIF RIGHT ELBOW.07-28-15 RT HIP REPLACEMENT, LT BREAST BX, CYSTOCELE/RECTOCELE Past Anesthesia/Blood Transfusion Reactions: No Reported Reaction Past Psychological History: No Psychological Hx Reported Smoking Status: Former smoker Past Alcohol Use History: None Reported Past Drug Use History: None Reported - Past Family History Daughter(s) Family Medical History: Asthma Additional Family Medical History / Comment(s): PT WAS ADOPTED DOES'NT KNOW ANY MOM AND DAD HX. General Exam - General Exam Comments Initial Comments: GENERAL: Patient is well-developed and well-nourished. Patient is nontoxic and well- hydrated and is in mild distress. ENT: Neck is soft and supple. No significant lymphadenopathy is noted. Oropharynx is clear. Moist mucous membranes. Neck has full range of motion without eliciting any pain. EYES: The sclera were anicteric and conjunctiva were pink and moist. Extraocular movements were intact and pupils were equal round and reactive to light. Eyelids were unremarkable. PULMONARY: Unlabored respirations. Good breath sounds bilaterally. No audible rales rhonchi or wheezing was noted. CARDIOVASCULAR: There is a regular rate and rhythm without any murmurs gallops or rubs. ABDOMEN: Soft and nontender with normal bowel sounds. SKIN: Skin is clear with no lesions or rashes and otherwise unremarkable. NEUROLOGIC: Patient is alert and oriented x3. Cranial nerves II through XII are grossly int act. Motor and sensory are also intact. Normal speech, volume and content. Symmetrical smile. MUSCULOSKELETAL: Normal extremities with adequate strength and full range of motion. No lower extremity swelling or edema. No calf tenderness. LYMPHATICS: No significant lymphadenopathy is noted PSYCHIATRIC: Normal psychiatric evaluation. Limitations: altered mental status, physical limitation Course Vital Signs 03/11/19 03/11/19 10:45 12:30 Temperature 98.0 F Pulse Rate 83 64 Respiratory 18 18 Rate Blood Pressure 91/50 103/64 O2 Sat by Pulse 97 93 L Oximetry Medical Decision Making - Medical Decision Making EKG shows normal sinus rhythm at 70 bpm MD interval is 182 QRS is 124 Q-T intervals 418 QTC is 451. EKG shows no ST segment elevation or depression. Patient has slight lactic acidosis but no signs of infection anywhere. I spoke with Dr. Hart he wanted to admit the patient 23 hour admission and hydrate the patient up and reevaluate her in the morning. I wrote admitting orders. - Lab Data Result diagrams: 03/11/19 11:28 03/11/19 11:28 Lab Results 03/11/19 03/11/19 03/11/19 Range/Units 11:28 11:28 11:28 WBC 5.7 (3.8-10.6) k/uL RBC 4.07 (3.80-5.40) m/uL Hgb 12.7 (11.4-16.0) gm/dL Hct 36.3 (34.0-46.0) % MCV 89.4 (80.0-100.0) fL MCH 31.1 (25.0-35.0) pg MCHC 34.8 (31.0-37.0) g/dL RDW 12.6 (11.5-15.5) % Plt Count 189 (150-450) k/uL Neutrophils % 84 % Lymphocytes % 8 % Monocytes % 4 % Eosinophils % 3 % Basophils % 0 % Neutrophils # 4.8 (1.3-7.7) k/uL Lymphocytes # 0.4 L (1.0-4.8) k/uL Monocytes # 0.2 (0-1.0) k/uL Eosinophils # 0.2 (0-0.7) k/uL Basophils # 0.0 (0-0.2) k/uL PT (9.0-12.0) sec INR (<1.2) APTT (22.0-30.0) sec Sodium 139 (137-145) mmol/L Potassium 3.9 (3.5-5.1) mmol/L Chloride 105 (98-107) mmol/L Carbon Dioxide 22 (22-30) mmol/L Anion Gap 12 mmol/L BUN 17 (7-17) mg/dL Creatinine 1.03 (0.52-1.04) mg/dL Est GFR (CKD-EPI)AfAm 56 (>60 ml/min/1.73 sqM) Est GFR (CKD-EPI)NonAf 48 (>60 ml/min/1.73 sqM) Glucose 122 H (74-99) mg/dL Plasma Lactic Acid Julio 2.3 H* (0.7-2.0) mmol/L Calcium 8.9 (8.4-10.2) mg/dL Magnesium 1.9 (1.6-2.3) mg/dL Total Bilirubin 0.7 (0.2-1.3) mg/dL AST 21 (14-36) U/L ALT 15 (9-52) U/L Alkaline Phosphatase 51 (38-126) U/L Troponin I (0.000-0.034) ng/mL NT-Pro-B Natriuret Pep pg/mL Total Protein 6.6 (6.3-8.2) g/dL Albumin 3.5 (3.5-5.0) g/dL TSH 1.120 (0.465-4.680) mIU/L Free T4 1.35 (0.78-2.19) ng/dL Urine Color Urine Appearance (Clear) Urine pH (5.0-8.0) Ur Specific [place] (1.001-1.035) Urine Protein (Negative) Urine Glucose (UA) (Negative) Urine Ketones (Negative) Urine Blood (Negative) Urine Nitrite (Negative) Urine Bilirubin (Negative) Urine Urobilinogen (<2.0) mg/dL Ur Leukocyte Esterase (Negative) Urine RBC (0-5) /hpf Urine WBC (0-5) /hpf Ur Squamous Epith Cells (0-4) /hpf Hyaline Casts (0-2) /lpf Urine Mucus (None) /hpf 03/11/19 03/11/19 03/11/19 Range/Units 11:28 11:28 11:28 WBC (3.8-10.6) k/uL RBC (3.80-5.40) m/uL Hgb (11.4-16.0) gm/dL Hct (34.0-46.0) % MCV (80.0-100.0) fL MCH (25.0-35.0) pg MCHC (31.0-37.0) g/dL RDW (11.5-15.5) % Plt Count (150-450) k/uL Neutrophils % % Lymphocytes % % Monocytes % % Eosinophils % % Basophils % % Neutrophils # (1.3-7.7) k/uL Lymphocytes # (1.0-4.8) k/uL Monocytes # (0-1.0) k/uL Eosinophils # (0-0.7) k/uL Basophils # (0-0.2) k/uL PT 27.9 H (9.0-12.0) sec INR 2.9 H (<1.2) APTT 38.1 H (22.0-30.0) sec Sodium (137-145) mmol/L Potassium (3.5-5.1) mmol/L Chloride (98-107) mmol/L Carbon Dioxide (22-30) mmol/L Anion Gap mmol/L BUN (7-17) mg/dL Creatinine (0.52-1.04) mg/dL Est GFR (CKD-EPI)AfAm (>60 ml/min/1.73 sqM) Est GFR (CKD-EPI)NonAf (>60 ml/min/1.73 sqM) Glucose (74-99) mg/dL Plasma Lactic Acid Julio (0.7-2.0) mmol/L Calcium (8.4-10.2) mg/dL Magnesium (1.6-2.3) mg/dL Total Bilirubin (0.2-1.3) mg/dL AST (14-36) U/L ALT (9-52) U/L Alkaline Phosphatase (38-126) U/L Troponin I <0.012 (0.000-0.034) ng/mL NT-Pro-B Natriuret Pep 849 pg/mL Total Protein (6.3-8.2) g/dL Albumin (3.5-5.0) g/dL TSH (0.465-4.680) mIU/L Free T4 (0.78-2.19) ng/dL Urine Color Urine Appearance (Clear) Urine pH (5.0-8.0) Ur Specific [place] (1.001-1.035) Urine Protein (Negative) Urine Glucose (UA) (Negative) Urine Ketones (Negative) Urine Blood (Negative) Urine Nitrite (Negative) Urine Bilirubin (Negative) Urine Urobilinogen (<2.0) mg/dL Ur Leukocyte Esterase (Negative) Urine RBC (0-5) /hpf Urine WBC (0-5) /hpf Ur Squamous Epith Cells (0-4) /hpf Hyaline Casts (0-2) /lpf Urine Mucus (None) /hpf 03/11/19 Range/Units 11:43 WBC (3.8-10.6) k/uL RBC (3.80-5.40) m/uL Hgb (11.4-16.0) gm/dL Hct (34.0-46.0) % MCV (80.0-100.0) fL MCH (25.0-35.0) pg MCHC (31.0-37.0) g/dL RDW (11.5-15.5) % Plt Count (150-450) k/uL Neutrophils % % Lymphocytes % % Monocytes % % Eosinophils % % Basophils % % Neutrophils # (1.3-7.7) k/uL Lymphocytes # (1.0-4.8) k/uL Monocytes # (0-1.0) k/uL Eosinophils # (0-0.7) k/uL Basophils # (0-0.2) k/uL PT (9.0-12.0) sec INR (<1.2) APTT (22.0-30.0) sec Sodium (137-145) mmol/L Potassium (3.5-5.1) mmol/L Chloride (98-107) mmol/L Carbon Dioxide (22-30) mmol/L Anion Gap mmol/L BUN (7-17) mg/dL Creatinine (0.52-1.04) mg/dL Est GFR (CKD-EPI)AfAm (>60 ml/min/1.73 sqM) Est GFR (CKD-EPI)NonAf (>60 ml/min/1.73 sqM) Glucose (74-99) mg/dL Plasma Lactic Acid Julio (0.7-2.0) mmol/L Calcium (8.4-10.2) mg/dL Magnesium (1.6-2.3) mg/dL Total Bilirubin (0.2-1.3) mg/dL AST (14-36) U/L ALT (9-52) U/L Alkaline Phosphatase (38-126) U/L Troponin I (0.000-0.034) ng/mL NT-Pro-B Natriuret Pep pg/mL Total Protein (6.3-8.2) g/dL Albumin (3.5-5.0) g/dL TSH (0.465-4.680) mIU/L Free T4 (0.78-2.19) ng/dL Urine Color Yellow Urine Appearance Cloudy H (Clear) Urine pH 5.5 (5.0-8.0) Ur Specific [place] 1.020 (1.001-1.035) Urine Protein Trace H (Negative) Urine Glucose (UA) Negative (Negative) Urine Ketones Negative (Negative) Urine Blood Negative (Negative) Urine Nitrite Negative (Negative) Urine Bilirubin Negative (Negative) Urine Urobilinogen 3.0 (<2.0) mg/dL Ur Leukocyte Esterase Negative (Negative) Urine RBC 1 (0-5) /hpf Urine WBC 1 (0-5) /hpf Ur Squamous Epith Cells 3 (0-4) /hpf Hyaline Casts 31 H (0-2) /lpf Urine Mucus Many H (None) /hpf Disposition Clinical Impression: Lactic acidosis, Generalized weakness Disposition: ADMITTED IP TO THIS [facility] Referrals: Baljit Hart MD [Primary Care Provider] - 1-2 days Time of Disposition: 13:26
[2019-03-11 11:57] LABS: Appearance,Urine Cloudy (Clear); Bilirubin,Urine Negative (Negative); Blood,Urine Negative (Negative); Color,Urine Yellow; Glucose,Urine (UA) Negative (Negative); Hyaline Casts,Urine 31 /lpf (0-2); Ketones,Urine Negative (Negative); Leukocyte Esterase,Urine Negative (Negative); Mucus,Urine Many /hpf; Nitrite,Urine Negative (Negative); PH, Urine 5.5 (5.0-8.0); Protein,Urine Trace (Negative); RBC,Urine 1 /hpf (0-5); Squamous Epithelial Cell,Urine 3 /hpf (0-4); WBC,Urine 1 /hpf (0-5)
[2019-03-11 12:00] LABS: Basophils % (A) 0 %; Eosinophils # (A) 0.2 k/uL (0-0.7); Eosinophils % (A) 3 %; HCT 36.3 % (34.0-46.0); HGB 12.7 gm/dL (11.4-16.0); Lymphocytes # (A) 0.4 k/uL (1.0-4.8); Lymphocytes % (A) 8 %; MCH 31.1 pg (25.0-35.0); MCHC 34.8 g/dL (31.0-37.0); MCV 89.4 fL (80.0-100.0); Mean Platelet Volume 7.1; Monocytes # (A) 0.2 k/uL (0-1.0); Monocytes % (A) 4 %; Neutrophils # (A) 4.8 k/uL (1.3-7.7); Neutrophils % (A) 84 %; Platelet Count 189 k/uL (150-450); RBC 4.07 m/uL (3.80-5.40); RDW 12.6 % (11.5-15.5); WBC 5.7 k/uL (3.8-10.6)
[2019-03-11 12:11] LABS: Albumin 3.5 g/dL (3.5-5.0); Calcium 8.9 mg/dL (8.4-10.2); Magnesium 1.9 mg/dL (1.6-2.3); Potassium 3.9 mmol/L (3.5-5.1); Total Bilirubin 0.7 mg/dL (0.2-1.3); Total Protein 6.6 g/dL (6.3-8.2)
--- NOTE | 2019-03-11 12:14 | XR ---
EXAMINATION TYPE: XR chest 2V DATE OF EXAM: 03/11/2019 COMPARISON: 07/17/2017 HISTORY: Weakness TECHNIQUE: Frontal and lateral views of the chest are obtained. FINDINGS: There is generalized osseous demineralization. There is tortuosity of the descending thora cic aorta as seen on the prior of 07/17/2017. Upper thoracic compression deformities unchanged from 07/17. Diffuse interstitial prominence remains. No new focal consolidation is seen. No pleural effusi on or pneumothorax. IMPRESSION: Chronic changes with no acute cardiopulmonary process.
[2019-03-11 12:16] LABS: INR 2.9 (<1.2); Partial Thromboplastin Time 38.1 sec (22.0-30.0); Prothrombin Time 27.9 sec (9.0-12.0)
[2019-03-11 12:27] LABS: T4, Free (Free Thyroxine) 1.35 ng/dL (0.78-2.19)
[2019-03-11] MEDS ORDERED: SODIUM CHLORIDE 0.9% 1,000 ML IV STA (12:30)
[2019-03-11] MEDS ORDERED: SODIUM CHLORIDE 0.9% 1,000 ML IV ONE (13:27)
[2019-03-11] MEDS ORDERED: PNEUMOCOCCAL VACC-PNEUMOVAX 23 25 MCG/0.5 ML VIAL IM ONE (14:23)
--- NOTE | 2019-03-11 17:14 | P.HPIM ---
History of Present Illness 88-year-old female was brought into the emergency room by the family with complaints of weakness on near falls. Patient has had a cough for 3 days with sweats. Patient is a history of breast cancer and DVTs. Lactic acid was initi ally positive repeat normal Review of Systems Constitutional: Reports fatigue, Reports weakness Respiratory: Reports cough with sputum Neurological: Reports weakness Past Medical History Past Medical History: Atrial Fibrillation, Cancer, Deep Vein Thrombosis (DVT), Eye Disorder, Osteoarthritis (OA), Syncope Additional Past Medical History / Comment(s): Afib with rapid rate in past, bilateral leg DVTs, r breast cancer with mastectomy, inconitnence of urine at times, 2015 shingelles, sinus problems, past vertigo. History of Any Multi-Drug Resistant Organisms: None Reported Past Surgical History: Breast Surgery, Cholecystectomy, Hysterectomy, Joint Replacement, Orthopedic Surgery, Tonsillectomy Additional Past Surgical History / Comment(s): R breast mastectomy, L breast biopsy, cystcele/rectocele, vocal cord benign nodule removed, R eye cataract removal/lens implants, L carpal tunnel release, ORIF R elbow, R total hip arthroplasty, bilateral total knee arthroplasties. Past Anesthesia/Blood Transfusion Reactions: No Reported Reaction Smoking Status: Never smoker - Past Family History Daughter(s) Family Medical History: Asthma Additional Family Medical History / Comment(s): PT WAS ADOPTED DOES'NT KNOW ANY MOM AND DAD HX. Father History Unknown: Yes Additional Family Medical History / Comment(s): Pt was adopted and does not know any hx. Mother History Unknown: Yes Additional Family Medical History / Comment(s): Pt was adopted and does not know any hx. Medications and Allergies Home Medications Medication Instructions Recorded Confirmed Type Verapamil HCl 120 mg PO DAILY 08/25/15 03/11/19 History Calcium Carbonate [Tums] 1,000 mg PO BID 06/29/17 03/11/19 History Cholecalciferol [Vitamin D3 (25 1,000 unit PO DAILY 03/11/19 03/11/19 History Mcg = 1000 Iu)] Donepezil [Aricept] 10 mg PO HS 03/11/19 03/11/19 History Pravastatin Sodium [Pravachol] 20 mg PO HS 03/11/19 03/11/19 History Warfarin Sodium [Coumadin] 5 mg PO MOTUWETHSA 03/11/19 03/11/19 History Warfarin [Coumadin] 7.5 mg PO SUFR 03/11/19 03/11/19 History Allergies Allergy/AdvReac Type Severity Reaction Status Date / Time morphine AdvReac Nausea & Verified 03/11/19 11:08 Vomiting Physical Exam Vitals: Vital Signs Temp Pulse Pulse Resp BP BP Pulse Ox 03/11/19 15:55 98.0 F 56 L 16 120/67 96 03/11/19 13:30 56 L 19 115/78 95 03/11/19 13:00 61 18 100/66 94 L 03/11/19 12:30 64 18 103/64 93 L 03/11/19 10:45 98.0 F 83 18 91/50 97 Intake and Output 03/11/19 03/11/19 03/11/19 06:59 14:59 22:59 Other: Weight 77.111 kg - Constitutional General appearance: mild distress - EENT Eyes: PERRLA Ears: bilateral: normal - Neck Neck: normal ROM - Respiratory Respiratory: bilateral: rhonchi - Cardiovascular Rhythm: irregularly irregular Abnormal Heart Sounds: systolic murmur - Gastrointestinal General gastrointestinal: normal bowel sounds, soft - Integumentary Integumentary: normal - Neurologic Neurologic: CNII-XII intact - Musculoskeletal Musculoskeletal: generalized weakness - Psychiatric Patient awake and alert pleasantly confused Results CBC & Chem 7: 03/11/19 11:28 03/11/19 11:28 Labs: Abnormal Lab Results - Last 24 Hours (Table) 03/11/19 03/11/19 03/11/19 Range/Units 11:28 11:28 11:28 Lymphocytes # 0.4 L (1.0-4.8) k/uL PT (9.0-12.0) sec INR (<1.2) APTT (22.0-30.0) sec Glucose 122 H (74-99) mg/dL Plasma Lactic Acid Julio 2.3 H* (0.7-2.0) mmol/L Urine Appearance (Clear) Urine Protein (Negative) Hyaline Casts (0-2) /lpf Urine Mucus (None) /hpf 03/11/19 03/11/19 Range/Units 11:28 11:43 Lymphocytes # (1.0-4.8) k/uL PT 27.9 H (9.0-12.0) sec INR 2.9 H (<1.2) APTT 38.1 H (22.0-30.0) sec Glucose (74-99) mg/dL Plasma Lactic Acid Julio (0.7-2.0) mmol/L Urine Appearance Cloudy H (Clear) Urine Protein Trace H (Negative) Hyaline Casts 31 H (0-2) /lpf Urine Mucus Many H (None) /hpf Chest x-ray: report reviewed Thrombosis Risk Factor Assmnt - Choose All That Apply Any of the Below Risk Factors Present?: Yes Each Factor Represents 1 point: Obesity (BMI >25) Other Risk Factors: Yes Each Risk Factor Represents 2 Points: Malignancy Each Risk Factor Represents 3 Points: Age 75 years or older, History of DVT/PE Other congenital or acquired thrombophilia - If yes, enter type in comment: No Thrombosis Risk Factor Assessment Total Risk Factor Score: 9 Thrombosis Risk Factor Assessment Level: High Risk Assessment and Plan Plan: Assessment Generalized weakness Positive lactic acidosis repeat negative Chronic persistent atrial fibrillation History of breast cancer with right-sided mastectomy DVT Cough Plan Repeat chest x-ray CT of the brain Rocephin and Zithromax for cough Follow-up in the a.m.
[2019-03-11] MEDS ORDERED: WARFARIN 5 MG TAB PO SCH (18:00)
--- NOTE | 2019-03-11 18:42 | CT ---
EXAMINATION TYPE: CT brain wo con DATE OF EXAM: 03/11/2019 COMPARISON: 07/19/2017 HISTORY: Dizziness. CT DLP: 2058.4 mGycm Automated exposure control for dose reduction was used. FINDINGS: There is diffuse cerebral atrophy. There is extensive patchy hypodensity in the periventricular white matter. There is no mass effect nor midline shift. There is no sign of intracranial hemorrhage. The calvarium is intact. IMPRESSION: CEREBRAL ATROPHY AND CHRONIC SMALL VESSEL ISCHEMIA. WHITE MATTER CHANGES HAVE PROGRESSED SLIGHTLY COM PARED TO OLD EXAM. NO HEMORRHAGE.
[2019-03-11] MEDS ORDERED: DONEPEZIL 10 MG TAB PO SCH (21:00)
[2019-03-11] MEDS ORDERED: PRAVASTATIN SODIUM 20 MG TAB PO SCH (21:00)
[2019-03-11] MEDS: CALCIUM CARBONATE 500 MG CHEWABLE PO SCH (21:14)
[2019-03-12] MEDS: CALCIUM CARBONATE 500 MG CHEWABLE PO SCH (07:35)
[2019-03-12] MEDS ORDERED: AZITHROMYCIN 500 MG in SODIUM CHLORIDE 0.9% 250 ML IVPB SCH (09:00)
[2019-03-12] MEDS ORDERED: CHOLECALCIFEROL 1,000 UNIT TAB PO SCH (09:00)
[2019-03-12] MEDS ORDERED: VERAPAMIL SR 120 MG TABLET.ER PO SCH (09:00)
[2019-03-12 10:50] LABS: Basophils % (A) 1 %; Eosinophils # (A) 0.2 k/uL (0-0.7); Eosinophils % (A) 3 %; HCT 36.1 % (34.0-46.0); HGB 12.4 gm/dL (11.4-16.0); Lymphocytes # (A) 0.6 k/uL (1.0-4.8); Lymphocytes % (A) 11 %; MCH 30.9 pg (25.0-35.0); MCHC 34.2 g/dL (31.0-37.0); MCV 90.2 fL (80.0-100.0); Monocytes # (A) 0.3 k/uL (0-1.0); Monocytes % (A) 5 %; Neutrophils # (A) 4.3 k/uL (1.3-7.7); Neutrophils % (A) 79 %; Platelet Count 178 k/uL (150-450); RBC 4.01 m/uL (3.80-5.40); RDW 12.6 % (11.5-15.5); WBC 5.5 k/uL (3.8-10.6)
--- NOTE | 2019-03-12 11:15 | XR ---
EXAMINATION TYPE: XR chest 2V DATE OF EXAM: 03/12/2019 COMPARISON: 03/11/2019 INDICATION: Cough TECHNIQUE: Frontal and lateral views of the chest are obtained. FINDINGS: The heart size is normal. The pulmonary vasculature is slightly prominent. This is diminished from comparison.. No suspicious focal consolidation is evident. Small posterior pleural effusions are present. IMPRESSION: 1. Resolving volume overload, improved from comparison
[2019-03-12 12:01] LABS: Calcium 8.9 mg/dL (8.4-10.2); Potassium 4.2 mmol/L (3.5-5.1)
[2019-03-12 14:11] VITALS: BP 99/59; PULSE 68; RESP 16; TEMP 98.7
--- NOTE | 2019-03-12 14:29 | P.DS ---
Providers Date of admission: 03/11/19 13:27 Expected date of discharge: 03/12/19 Attending physician: Baljit Hart Primary care physician: Baljit Hart [facility] Course: 88-year-old female was brought to the emergency room for complaints of weakness near fall cough for three days. Initial labs positive lactic acidosis repeat negative. Chest x-ray improved. Evaluated by physical therapy family declined home physical therapy Assessment generalize weakness positive lactic acidosis repeat negative chronic persistent atrial fibrillation history of breast cancer with right-sided mastectomy history of DVT acute purulent bronchitis Plan continue Zithromax follow up with family physician Dr. Baljit Hart Plan - Discharge Summary Discharge Rx Participant: No New Discharge Prescriptions: New Azithromycin [Zithromax Z-pack] 0 mg PO DIRECTED #6 tab Continue Verapamil HCl 120 mg PO DAILY Calcium Carbonate [Tums] 1,000 mg PO BID Warfarin [Coumadin] 7.5 mg PO SUFR Pravastatin Sodium [Pravachol] 20 mg PO HS Donepezil [Aricept] 10 mg PO HS Cholecalciferol [Vitamin D3 (25 Mcg = 1000 Iu)] 1,000 unit PO DAILY Warfarin Sodium [Coumadin] 5 mg PO MOTUWETHSA Discharge Medication List Verapamil HCl 120 mg PO DAILY 08/25/15 [History] Calcium Carbonate [Tums] 1,000 mg PO BID 06/29/17 [History] Cholecalciferol [Vitamin D3 (25 Mcg = 1000 Iu)] 1,000 unit PO DAILY 03/11/19 [History] Donepezil [Aricept] 10 mg PO HS 03/11/19 [History] Pravastatin Sodium [Pravachol] 20 mg PO HS 03/11/19 [History] Warfarin Sodium [Coumadin] 5 mg PO MOTUWETHSA 03/11/19 [History] Warfarin [Coumadin] 7.5 mg PO SUFR 03/11/19 [History] Azithromycin [Zithromax Z-pack] 0 mg PO DIRECTED #6 tab 03/12/19 [Rx] Follow up Appointment(s)/Referral(s): Baljit Hrat MD [Primary Care Provider] - 1-2 days
[2019-03-12 15:30] LABS: INR 3.2 (<1.2); Prothrombin Time 31.2 sec (9.0-12.0)
[2019-03-12] MEDS ORDERED: WARFARIN 0.5 MG TAB PO ONE (18:00)
[2019-03-15] MEDS ORDERED: WARFARIN 7.5 MG TAB PO SCH (18:00)
== END 2019-03-12 16:14 | disposition home or self-care (01) ==
LOC: EC 10:43 → 4MS4W 13:27
PROVIDERS: ADMIT Family Medicine; ATTEND Family Medicine
DX: R53.1 Weakness (principal); E87.2 Acidosis; J20.9 Acute bronchitis, unspecified; E87.70 Fluid overload, unspecified; I67.9 Cerebrovascular disease, unspecified; E66.9 Obesity, unspecified; Z68.29 Body mass index [BMI] 29.0-29.9, adult; M19.90 Unspecified osteoarthritis, unspecified site; M81.0 Age-related osteoporosis without current pathological fracture; Z23 Encounter for immunization; Z79.01 Long term (current) use of anticoagulants; Z79.899 Other long term (current) drug therapy; Z88.5 Allergy status to narcotic agent; Z90.49 Acquired absence of other specified parts of digestive tract; Z90.710 Acquired absence of both cervix and uterus; Z96.653 Presence of artificial knee joint, bilateral; Z96.641 Presence of right artificial hip joint; Z85.3 Personal history of malignant neoplasm of breast; Z86.718 Personal history of other venous thrombosis and embolism; Z90.11 Acquired absence of right breast and nipple; Z87.891 Personal history of nicotine dependence; R41.82 Altered mental status, unspecified; Z98.41 Cataract extraction status, right eye; Z96.1 Presence of intraocular lens; Z86.79 Personal history of other diseases of the circulatory system; Z86.61 Personal history of infections of the central nervous system; Z82.5 Family history of asthma and other chronic lower respiratory diseases; Z87.19 Personal history of other diseases of the digestive system
CPT/HCPCS: 96361 ×3; 96365; 96366; 96368; 99285; 36415; 93005; 84439; 83880; 80053; 80048; 83605; 83735; 84443; 84484; 85025 ×2; 85610 ×2; 85730; 81001; 87086; 71046 ×2; 70450; 90732; G0378 ×2; G0009; J0456; J0696

== ENCOUNTER 2019-03-13 16:51 | Emergency (ER) | payer MEDICARE, MEDICAID ==
[2019-03-13 17:06] VITALS: RESP 18; TEMP 98.5
--- NOTE | 2019-03-13 18:13 | CT ---
EXAMINATION TYPE: CT brain mark glaser DATE OF EXAM: 03/13/2019 COMPARISON: 03/11/2019 CT brain HISTORY: Fall today. Complains of weakness and fatigue CT DLP: 1303.6 mGycm Automated exposure control for dose reduction was used. TECHNIQUE: CT scan of the head and cervical spine are performed without contrast. FINDINGS: There is cerebral cortical atrophy. There is no mass effect nor midline shift. There is n o sign of intracranial hemorrhage. There is patchy hypodensity in the periventricular white matter. T he calvarium is intact. Cervical vertebra have fairly normal alignment. There is degenerative disc space narrowing at C5-6 an d C6-7. Posterior elements are intact. There is cervical hypertrophic facet arthropathy in the mid ce rvical spine. The skull base is intact. There is no evidence of cervical spine fracture. I see no bon y destructive process. IMPRESSION: Cerebral atrophy and chronic small vessel ischemia. No acute intracranial abnormality. No change. Spondylotic changes in the cervical spine. No fracture.
--- NOTE | 2019-03-13 18:33 | ED ---
Fall HPI - General Chief Complaint: Fall Stated Complaint: Fall, lethargic Time Seen by Provider: 03/13/19 17:39 Source: patient Mode of arrival: wheelchair - History of Present Illness Initial Comments: Patient is an 88-year-old female presenting to emergency Department with a chief complaint of a fall. Her daughter reports that she found the patient on the first morning when she woke up. Daughter suspects that the patient has been on the floor for approximately one hour. Patient has had a recent hip surgery and does sleep on the side with a pillow between her legs. According to the patient she saw she was closer to the medical of the bed when she turned and fell on the side. Patient was laying on the floor on her back. Daughter reports the patient has been sleeping more than usual but otherwise acting at her baseline. Patient is on blood thinners. Daughter reports the patient has been sleeping slightly more than usual but is otherwise acting at her baseline. - Related Data Home Medications Medication Instructions Recorded Confirmed Verapamil HCl 120 mg PO DAILY 08/25/15 03/13/19 Calcium Carbonate [Tums] 1,000 mg PO BID 06/29/17 03/13/19 Cholecalciferol [Vitamin D3 (25 1,000 unit PO DAILY 03/11/19 03/13/19 Mcg = 1000 Iu)] Donepezil [Aricept] 10 mg PO HS 03/11/19 03/13/19 Pravastatin Sodium [Pravachol] 20 mg PO HS 03/11/19 03/13/19 Warfarin Sodium [Coumadin] 5 mg PO MOTUWETHSA 03/11/19 03/13/19 Warfarin [Coumadin] 7.5 mg PO SUFR 03/11/19 03/13/19 Azithromycin [Zithromax Z-pack] See Taper PO DIRECTED 03/13/19 03/13/19 Allergies Allergy/AdvReac Type Severity Reaction Status Date / Time morphine AdvReac Nausea & Verified 03/13/19 18:14 Vomiting Review of Systems ROS Statement: Those systems with pertinent positive or pertinent negative responses have been documented in the HPI. ROS Other: All systems not noted in ROS Statement are negative. Past Medical History Past Medical History: Atrial Fibrillation, Cancer, Deep Vein Thrombosis (DVT), Eye Disorder, Osteoarthritis (OA), Syncope Additional Past Medical History / Comment(s): Afib with rapid rate in past, bilateral leg DVTs, r breast cancer with mastectomy, inconitnence of urine at times, 2015 shingelles, sinus problems, past vertigo. History of Any Multi-Drug Resistant Organisms: None Reported Past Surgical History: Breast Surgery, Cholecystectomy, Hysterectomy, Joint Replacement, Orthopedic Surgery, Tonsillectomy Additional Past Surgical History / Comment(s): R breast mastectomy, L breast biopsy, cystcele/rectocele, vocal cord benign nodule removed, R eye cataract removal/lens implants, L carpal tunnel release, ORIF R elbow, R total hip arthroplasty, bilateral total knee arthroplasties. Past Anesthesia/Blood Transfusion Reactions: No Reported Reaction Past Psychological History: No Psychological Hx Reported Smoking Status: Never smoker - Past Family History Daughter(s) Family Medical History: Asthma Additional Family Medical History / Comment(s): PT WAS ADOPTED DOES'NT KNOW ANY MOM AND DAD HX. Father History Unknown: Yes Additional Family Medical History / Comment(s): Pt was adopted and does not know any hx. Mother History Unknown: Yes Additional Family Medical History / Comment(s): Pt was adopted and does not know any hx. General Exam Limitations: no limitations General appearance: alert, in no apparent distress Head exam: Present: atraumatic, normocephalic, normal inspection. Absent: other (No hemotympanum, negative Sol sign, negative periorbital ecchymosis.) Eye exam: Present: normal appearance. Absent: periorbital tenderness Pupils: Present: unequal (poor dilation in left pupil) ENT exam: Present: normal exam, normal oropharynx, mucous membranes moist, TM's normal bilaterally, normal external ear exam Neck exam: Present: normal inspection, full ROM. Absent: tenderness Respiratory exam: Present: normal lung sounds bilaterally Cardiovascular Exam: Present: regular rate, normal rhythm, normal heart sounds Extremities exam: Present: normal inspection, full ROM, normal capillary refill. Absent: tenderness Back exam: Present: normal inspection, full ROM. Absent: tenderness Neurological exam: Present: alert, oriented X3 Psychiatric exam: Present: normal affect, normal mood Skin exam: Present: warm, intact, normal color Course Vital Signs 03/13/19 17:01 Temperature 98.5 F Pulse Rate 84 Respiratory 18 Rate Blood Pressure 105/61 O2 Sat by Pulse 98 Oximetry Medical Decision Making - Medical Decision Making Patient is an 88-year-old female presenting to emergency Department with a chief complaint of a fall. Daughter found the patient on the floor this morning laying in supine position. Daughter suspect the patient has been on the floor for about an hour. Patient does give with her daughter. Patient is on blood thinners. CT of the brain and C-spine is negative for acute fractures, dislocations, hemorrhage or midline shift. Physical examination is indicative of unequal pupils. Daughter states that is her baseline due to a previous right eye surgery and decreased dilation and left eye. Daughter states that appointment tomorrow to see the primary care. Strict return parameters were thoroughly discussed with patient and daughter are understanding and agreeable. Case discussed physician. Disposition Clinical Impression: Fall Disposition: HOME SELF-CARE Condition: Stable Instructions (If sedation given, give patient instructions): Fall Prevention (ED) Additional Instructions: Please follow with primary care. Please return to emergency department if symptoms worsen. Is patient prescribed a controlled substance at d/c from ED?: No Referrals: Baljit Hart MD [Primary Care Provider] - 1-2 days Time of Disposition: 18:37
[2019-03-13 18:51] VITALS: BP 111/69; PULSE 78
== END 2019-03-13 18:52 | disposition home or self-care (01) ==
LOC: EC 16:51
DX: R53.83 Other fatigue (principal); H57.04 Mydriasis; I48.91 Unspecified atrial fibrillation; M19.90 Unspecified osteoarthritis, unspecified site; Z79.01 Long term (current) use of anticoagulants; Z79.899 Other long term (current) drug therapy; Z85.3 Personal history of malignant neoplasm of breast; Z88.5 Allergy status to narcotic agent; Z86.718 Personal history of other venous thrombosis and embolism; Z90.12 Acquired absence of left breast and nipple; Z96.641 Presence of right artificial hip joint; Z96.653 Presence of artificial knee joint, bilateral; W06.XXXA Fall from bed, initial encounter
CPT/HCPCS: 70450; 72125; 99283